=== PATIENT | female | born 1980 | race Caucasian/White ===

== ENCOUNTER 2022-03-21 09:35 | Outpatient (CLI) | payer BC, SELFPAY | END 2022-03-21 09:36 | disposition home or self-care (01) | PROVIDERS: PCP Family Medicine; Visit Provider Registered Nurse | DX: N92.0 Excessive and frequent menstruation with regular cycle (principal); N39.0 Urinary tract infection, site not specified | CPT/HCPCS: 84443; 87086 ==

== ENCOUNTER 2022-03-26 07:04 | Outpatient (CLI) | payer BC, SELFPAY ==
--- NOTE | 2022-03-26 07:15 | CRLHL7_ITS ---
For Patients: As a result of the Century Cures Act, medical imaging exams and procedure reports are released immediately into your electronic medical record. You may view this report before your referring provider. If you have questions, please contact your health care provider. INDICATION: EXCESSIVE AND FREQUENT MENSTRUATION COMPARISON: 04/24/2020 TECHNIQUE: 2D rainey scale and color Doppler images were acquired of the pelvis using a transabdominal and transvaginal approach. FINDINGS: Sonographic images demonstrate a normal size and smooth outer contour of the uterus. Uterus measures 9.9 cm in length by 4.8 cm in AP diameter by 6.0 cm in transverse dimension. The myometrium has a normal uniform echotexture. The endometrial lining measures 8 mm in composite thickness. The right ovary measures 4.4 x 1.7 x 2.2 cm in size and the left ovary measures 4.4 x 3.3 x 4.1 cm. The ovaries demonstrate normal arterial and venous blood flow on color Doppler analysis. There are no suspicious fluid collections within the cul-de-sac. Complex left ovarian cyst is present with internal reticular echoes measuring 4.0 x 3.2 x 3.7 cm. IMPRESSION: Hemorrhagic left ovarian cyst measuring 4 centimeters. Endometrial thickness 8 millimeters. No uterine fibroid. Dictated by Guero Juan MD @ 03/26/2022 8:34:40 AM (Electronically Signed)
== END 2022-03-26 07:05 | disposition home or self-care (01) ==
PROVIDERS: PCP Family Medicine; Visit Provider Registered Nurse
DX: N92.0 Excessive and frequent menstruation with regular cycle (principal); N83.202 Unspecified ovarian cyst, left side; R93.89 Abnormal findings on diagnostic imaging of other specified body structures
CPT/HCPCS: 76830; 76856

== ENCOUNTER 2022-04-17 12:55 | Outpatient (CLI) | payer BC, SELFPAY ==
--- NOTE | 2022-04-17 13:00 | CRLHL7_ITS ---
For Patients: As a result of the Century Cures Act, medical imaging exams and procedure reports are released immediately into your electronic medical record. You may view this report before your referring provider. If you have questions, please contact your health care provider. BILATERAL BREAST MRI WITHOUT AND WITH GADOLINIUM CLINICAL HISTORY: At increased risk for breast cancer due to a family history of breast cancer in 2 paternal aunts diagnosed in their 40s and 2 paternal cousins diagnosed in their 40s. Personal history of MRI guided biopsy in 2020 showing benign fibrocystic change. No current breast related concerns. INDICATION FOR BREAST MRI: Screening breast MRI in this high-risk woman. COMPARISON STUDIES: Breast MRIs 03/26/2021 and 02/17/2020. Mammograms 09/25/2019 and 09/14/2020. CONTRAST: 20 mL Dotarem. TECHNIQUE: The patient was positioned prone using a breast coil. Multiple imaging sequences were obtained using 1-1.5 mm thick slices with no gap. The image sequences include T2-weighted STIR in the axial plane, T1-weighted nonfat-saturated gradient echo in the axial plane, pre- and post-contrast T1-weighted FLASH 3D with fat suppression in the axial plane, and T1-weighted FLASH high resolution 3D with fat suppression in the sagittal plane. Image post-processing was performed on a [employer] workstation. Complex 3D rendering including maximum intensity projections (MIPS) and volumetric renderings were obtained to optimize visualization of the extent of pathology and relationship to the nipple, skin, and chest wall. This aids in determining feasibility of breast conservation surgery. Subtraction, multiplanar reconstruction, mean curve determination, and angiogenesis mapping were also performed. The study was technically adequate. FINDINGS: Amount of Fibroglandular Tissue: Heterogeneous fibroglandular tissue. Breast Background Enhancement: Moderate. RIGHT Breast: There is susceptibility artifact from a biopsy marking clip in the retroareolar breast. There is no suspicious mass or enhancement in the breast. LEFT Breast: No suspicious mass or enhancement in the breast. Lymph Nodes: No abnormal morphology lymph nodes. IMPRESSIONS AND RECOMMENDATIONS: 1. No MRI evidence of malignancy in either breast. 2. Annual screening mammography is recommended. If clinically indicated, continued screening breast MRI may also be performed, staggered at six-month intervals with screening mammography. BI-RADS Category 2: Benign. Dictated by Kathi Zhao MD @ 04/18/2022 12:11:[address]/Dictated by: Kathi Zhao MD @ 04/18/2022 12:11:00 PM (Electronically Signed)
== END 2022-04-17 12:56 | disposition home or self-care (01) ==
LOC: MRI 12:55
PROVIDERS: PCP Family Medicine; Visit Provider Surgery
DX: Z91.89 Other specified personal risk factors, not elsewhere classified (principal); Z80.3 Family history of malignant neoplasm of breast
CPT/HCPCS: 77049; A9575

== ENCOUNTER 2022-04-30 15:51 | Outpatient (CLI) | payer BC, SELFPAY ==
--- NOTE | 2022-04-30 16:00 | CRLHL7_ITS ---
For Patients: As a result of the Century Cures Act, medical imaging exams and procedure reports are released immediately into your electronic medical record. You may view this report before your referring provider. If you have questions, please contact your health care provider. INDICATION: Abnormal uterine bleeding COMPARISON: 03/26/2022 TECHNIQUE: 2D rainey scale and color Doppler images were acquired of the pelvis using a transabdominal and transvaginal approach. FINDINGS: Sonographic images demonstrate a normal size and smooth outer contour of the uterus. Uterus measures 9.4 cm in length by 4.3 cm in AP diameter by 6.3 cm in transverse dimension. The myometrium has a normal uniform echotexture. The endometrial lining measures 6 mm in composite thickness. The right ovary measures 3.4 x 1.6 x 1.4 cm in size and the left ovary measures 3.6 x 1.7 x 2.3 cm. The ovaries demonstrate normal arterial and venous blood flow on color Doppler analysis. Decreased size of previously noted left ovarian cyst now measuring 1 cm. There are no suspicious fluid collections within the cul-de-sac. IMPRESSION: Endometrial thickness 6 millimeters. Dictated by Guero Juan MD @ 05/01/2022 10:49:05 AM (Electronically Signed)
== END 2022-04-30 15:52 | disposition home or self-care (01) ==
LOC: US 15:52
PROVIDERS: PCP Family Medicine; Visit Provider Registered Nurse
DX: N93.9 Abnormal uterine and vaginal bleeding, unspecified (principal); R93.89 Abnormal findings on diagnostic imaging of other specified body structures
CPT/HCPCS: 76830; 76856

== ENCOUNTER 2022-10-16 11:35 | Outpatient (CLI) | payer BC, SELFPAY ==
--- NOTE | 2022-10-16 12:00 | CRLHL7_ITS ---
For Patients: As a result of the Cures Act, medical imaging exams and procedure reports are released immediately into your electronic medical record. You may view this report before your referring provider. If you have questions, please contact your health care provider. BILATERAL SCREENING MAMMOGRAM WITH COMPUTER-AIDED DETECTION AND TOMOSYNTHESIS TECHNIQUE: CC and MLO views were obtained. These mammographic images have been obtained using full-field digital technique. These mammographic images were interpreted with the benefit of computer-aided detection. Breast Tomosynthesis was used in this interpretation. COMPARISON FILM: 09/25/21, 09/14/20, 09/02/19. FINDINGS: The breasts are heterogeneously dense, which may obscure small masses IMPRESSION: There is no radiographic evidence for malignancy. ASSESSMENT: BI-RADS Category 2: Benign RECOMMENDATION: Routine screening mammogram in 1 year. A lay language report of this examination will be provided to the patient. Guero Juan M.D. Diagnostic Radiologist [email or web address] ELLEN/kanika / be/Dictated by: Guero uJan MD @ 10/16/2022 12:37:00 PM (Electronically Signed)
== END 2022-10-16 11:36 | disposition home or self-care (01) ==
LOC: MAMMO 11:35
PROVIDERS: PCP Family Medicine; Visit Provider Surgery
DX: Z12.31 Encounter for screening mammogram for malignant neoplasm of breast (principal); R92.2 Inconclusive mammogram
CPT/HCPCS: 77063; 77067

== ENCOUNTER 2023-01-31 12:04 | Outpatient (CLI) | payer BC, SELFPAY | END 2023-01-31 12:05 | disposition home or self-care (01) | PROVIDERS: PCP Family Medicine; Visit Provider Nurse Practitioner Family | DX: R19.7 Diarrhea, unspecified (principal); R10.9 Unspecified abdominal pain | CPT/HCPCS: 83516; 84443; 86140 ==

== ENCOUNTER 2023-04-18 07:05 | Outpatient (CLI) | payer BC, SELFPAY ==
--- NOTE | 2023-04-18 07:15 | CRLHL7_ITS ---
For Patients: As a result of the Century Cures Act, medical imaging exams and procedure reports are released immediately into your electronic medical record. You may view this report before your referring provider. If you have questions, please contact your health care provider. BILATERAL BREAST MRI WITHOUT AND WITH GADOLINIUM CLINICAL HISTORY: 42-year-old female with elevated risk of breast cancer due to strong family history. INDICATION FOR BREAST MRI: Screening breast MRI in this high-risk woman. COMPARISON STUDIES: Breast MRI 04/17/2022, mammogram 10/16/2022. CONTRAST: 15 cc of dotarem. TECHNIQUE: The patient was positioned prone using a breast coil. Multiple imaging sequences were obtained using 1-1.5 mm thick slices with no gap. The image sequences include T2-weighted STIR in the axial plane, T1-weighted nonfat-saturated gradient echo in the axial plane, pre- and post-contrast T1-weighted FLASH 3D with fat suppression in the axial plane, and T1-weighted FLASH high resolution 3D with fat suppression in the sagittal plane. Image post-processing was performed on a [employer] workstation. Complex 3D rendering including maximum intensity projections (MIPS) and volumetric renderings were obtained to optimize visualization of the extent of pathology and relationship to the nipple, skin, and chest wall. This aids in determining feasibility of breast conservation surgery. Subtraction, multiplanar reconstruction, mean curve determination, and angiogenesis mapping were also performed. The study was technically adequate. FINDINGS: Amount of Fibroglandular Tissue: Scattered fibroglandular tissue. Breast Background Enhancement: Mild. RIGHT Breast: There are no suspicious areas of enhancement. LEFT Breast: There are no suspicious areas of enhancement. Lymph Nodes: No adenopathy. IMPRESSIONS AND RECOMMENDATIONS: Negative, there is no MRI evidence of malignancy. Continued annual screening mammography and as clinically indicated screening breast MRI. The mammogram and MRI should be offset by six-month intervals of time. BI-RADS Category 1: Negative Dictated by Cheryl Wilson MD @ 04/24/2023 4:50:20 PM/bebeto GAIL/Dictated by: Cheryl Wilson MD @ 04/24/2023 4:50:00 PM (Electronically Signed)
== END 2023-04-18 07:06 | disposition home or self-care (01) ==
PROVIDERS: Visit Provider Surgery
DX: Z80.3 Family history of malignant neoplasm of breast (principal); Z91.89 Other specified personal risk factors, not elsewhere classified
CPT/HCPCS: 77049; A9575

== ENCOUNTER 2023-10-20 14:39 | Outpatient (CLI) | payer BC, SELFPAY ==
--- NOTE | 2023-10-20 15:00 | MM_ITS ---
Patient: SUZAN HOLLOWAY Facility:?[facility] Patient ID:?[id number] Site Patient ID:?[id number]. Site :?[id number] Study:?XRay-Breast Bilateral 3D W/CAD-10/20/2023 3:47:05 PM Ordering Physician:Nhung Final Report: BILATERAL SCREENING MAMMOGRAM WITH COMPUTER-AIDED DETECTION AND TOMOSYNTHESIS TECHNIQUE: CC and MLO views were obtained. These mammographic images have been obtained using full-field digital technique. These mammographic images were interpreted with the benefit of computer-aided detection. Breast Tomosynthesis was used in this interpretation. COMPARISON FILM: 10/16/22, 09/25/21, 09/14/20. FINDINGS: The breasts are heterogeneously dense, which may obscure small masses. IMPRESSION: There is no radiographic evidence for malignancy. ASSESSMENT: BI-RADS Category 1: Negative RECOMMENDATION: Routine screening mammogram in 1 year. A lay language report of this examination will be provided to the patient. Guero Juan M.D. Diagnostic Radiologist [email or web address] DSM/sp R& Transcribed: 4:34 p.m. SP/Dictated by: Guero Juan MD @ 10/21/2023 8:48:00 AM Signed by:?Guero Juan MD @10/22/2023 5:28:01 AM (Electronic Signature)
== END 2023-10-20 14:40 | disposition home or self-care (01) ==
LOC: MAMMO 14:40
PROVIDERS: Visit Provider Surgery
DX: Z12.31 Encounter for screening mammogram for malignant neoplasm of breast (principal); R92.2 Inconclusive mammogram
CPT/HCPCS: 77063; 77067

== ENCOUNTER 2024-04-19 17:18 | Outpatient (CLI) | payer BC, SELFPAY ==
--- NOTE | 2024-04-19 17:30 | CRLHL7_ITS ---
For Patients: As a result of the Century Cures Act, medical imaging exams and procedure reports are released immediately into your electronic medical record. You may view this report before your referring provider. If you have questions, please contact your health care provider. BILATERAL BREAST MRI WITHOUT AND WITH GADOLINIUM CLINICAL HISTORY: 43-year-old female with elevated risk of breast cancer due to strong family history. INDICATION FOR BREAST MRI: Screening breast MRI in this high-risk woman. COMPARISON STUDIES: Breast MRI 04/18/2023, mammogram 10/20/2023, 10/16/2022. CONTRAST: 20 cc Dotarem. TECHNIQUE: The patient was positioned prone using a breast coil. Multiple imaging sequences were obtained using 1-1.5 mm thick slices with no gap. The image sequences include T2-weighted STIR in the axial plane, T1-weighted nonfat-saturated gradient echo in the axial plane, pre- and post-contrast T1-weighted FLASH 3D with fat suppression in the axial plane, and T1-weighted FLASH high resolution 3D with fat suppression in the sagittal plane. Image post-processing was performed on a [employer] workstation. Complex 3D rendering including maximum intensity projections (MIPS) and volumetric renderings were obtained to optimize visualization of the extent of pathology and relationship to the nipple, skin, and chest wall. This aids in determining feasibility of breast conservation surgery. Subtraction, multiplanar reconstruction, mean curve determination, and angiogenesis mapping were also performed. The study was technically adequate. FINDINGS: Amount of Fibroglandular Tissue: Scattered fibroglandular tissue. Breast Background Enhancement: Mild. RIGHT Breast: Susceptibility artifact from a biopsy marker clip is present. No suspicious areas of enhancement. LEFT Breast: No suspicious areas of enhancement. Lymph Nodes: No adenopathy. IMPRESSIONS AND RECOMMENDATIONS: Benign, there is no MRI evidence of malignancy. Continue annual screening mammography and as clinically indicated screening breast MRI. The mammogram and MRI should be offset by six-month intervals of time. BI-RADS Category 2: Benign Dictated by Cheryl Wilson MD @ 04/21/2024 2:54:26 PM /sp/juan SP/Dictated by: Cheryl Wilson MD @ 04/21/2024 2:54:00 PM (Electronically Signed)
== END 2024-04-19 17:19 | disposition home or self-care (01) ==
LOC: MRI 17:18
PROVIDERS: Visit Provider Surgery
DX: Z12.39 Encounter for other screening for malignant neoplasm of breast (principal); Z91.89 Other specified personal risk factors, not elsewhere classified; Z80.3 Family history of malignant neoplasm of breast
CPT/HCPCS: 77049; A9575

== ENCOUNTER 2024-05-27 15:25 | Outpatient (CLI) | payer BC, SELFPAY ==
[2024-06-12 08:31] LABS: HPV Source Cervical; HPV, High Risk by TMA Not Detected
== END 2024-05-27 15:26 | disposition home or self-care (01) ==
PROVIDERS: Visit Provider Registered Nurse
DX: R23.2 Flushing (principal); Z13.29 Encounter for screening for other suspected endocrine disorder
CPT/HCPCS: 84443; 87624; 87625; 88141; 88142

== ENCOUNTER 2024-08-02 10:16 | Outpatient (CLI) | payer BC, SELFPAY ==
--- NOTE | 2024-08-02 11:12 | W.ANESCHARGE ---
Anesthesia Charges Start Date/Time Anesthesia Start Date: 08/02/24 Anesthesia Start Time: 10:44 Stop Date/Time Anesthesia Stop Date: 08/02/24 Anesthesia Stop Time: 11:10
--- NOTE | 2024-08-02 11:37 | W.ANESCHARGE ---
Anesthesia Charges Start Date/Time Anesthesia Start Date: 08/02/24 Anesthesia Start Time: 10:44 Stop Date/Time Anesthesia Stop Date: 08/02/24 Anesthesia Stop Time: 11:10
== END 2024-08-02 10:17 | disposition home or self-care (01) ==
LOC: OP CLINIC 10:17
PROVIDERS: Visit Provider Surgery
DX: Z12.11 Encounter for screening for malignant neoplasm of colon (principal); D12.2 Benign neoplasm of ascending colon; Z83.719 Family history of colon polyps, unspecified
CPT/HCPCS: 00811; 00812; 45385; 88305; J2704

== ENCOUNTER 2024-10-21 15:08 | Outpatient (CLI) | payer BC, SELFPAY | END 2024-10-21 15:09 | disposition home or self-care (01) | PROVIDERS: Visit Provider Surgery | DX: Z12.31 Encounter for screening mammogram for malignant neoplasm of breast (principal); R92.333 Mammographic heterogeneous density, bilateral breasts | CPT/HCPCS: 77063; 77067 ==

== ENCOUNTER 2024-11-11 15:02 | Outpatient (CLI) | payer BC, SELFPAY | END 2024-11-11 15:03 | disposition home or self-care (01) | LOC: FRMREF 15:02 | PROVIDERS: Visit Provider Registered Nurse | DX: Z13.6 Encounter for screening for cardiovascular disorders (principal) | CPT/HCPCS: 80061 ==

== ENCOUNTER 2025-01-20 15:39 | Outpatient (CLI) | payer BC, SELFPAY ==
[2025-01-20 22:21] LABS: Bacterial Vaginosis* POSITIVE (Negative); Candida glab/krus NOT DETECTED (No Detected); Candida species NOT DETECTED (No Detected); Trichomonas vaginalis NOT DETECTED (No Detected)
== END 2025-01-20 15:40 | disposition home or self-care (01) ==
LOC: FRMREF 16:01
PROVIDERS: Visit Provider Registered Nurse
DX: N89.8 Other specified noninflammatory disorders of vagina (principal)
CPT/HCPCS: 81513; 87481; 87661